=== PATIENT | female | born 1980 | race African-American/Black ===

== ENCOUNTER 2016-04-28 09:37 | Emergency (ER) | payer MEDICAID ==
[~2016-04-28] VITALS: Ht 167.6 cm; Wt 100.0 kg
[~2016-04-28 09:37] MED LIST: DICY1TAB26 PO; PANT20 PO; ZOFR4TAB3 SL
[2016-04-28 09:46] VITALS: BP 128/78; PULSE 17; PULSE 65; RESP 15; TEMP 98.2; O2SAT 99
--- NOTE | 2016-04-28 11:13 | PD ---
HPI Chief Complaint: Chest Pain Time Seen by Provider: 11:09 Travel History International Travel<30 days: No Contact w/Intl Traveler<30days: No Traveled to known affect area: No History of Present Illness HPI 35 year old female presents to the emergency department for evaluation of swollen lips that she woke up with this morning. Patient states she has had intermittent hives over the past 4 days. Patient states that the swelling has gone down since she woke up this morning. She has not taken any medications. The patient denies any difficulty breathing or swallowing. She denies any hives or rash at this time. Patient has no chronic medical problems and takes no prescribed medication. She reports an episode yesterday of indigestion. She states she had midsternal chest burning that lasted roughly 10 minutes and resolved on its own. She has no cardiac history. She has no family cardiac history of sudden cardiac before the age of 40. She denies any chance of . She denies any IV drug use. No fevers or chills. She does report some intermittent nasal congestion over the past couple weeks. She has been taking Mucinex [id number] with improvement. [facility] Past Medical History Asthma: Yes ?: Unknown Tubal Ligation: Yes Past Surgical History Gynecologic Surgery: Yes (tibal litigation) Social History Alcohol Use: Yes (social) Tobacco Use: Yes (03/20) Substance Use: Yes (marijuana this morning) Allergies-Medications (Allergen,Severity, Reaction): Coded Allergies: No Known Allergies (Unverified , 04/28/16) Reported Meds & Prescriptions Reported Meds & Active Scripts Active No Active Prescriptions or Reported Medications Review of Systems Except as stated in HPI: all other systems reviewed are Neg Physical Exam Narrative GENERAL: Well-developed well-nourished female patient, ambulatory. Afebrile. SKIN: Warm and dry. HEAD: Normocephalic. Atraumatic. ENT: Mucosa pink and moist. No erythema or exudates. No uvular edema. No uvular , palatal, or tonsillar deviation. Airway patent. Nasal turbinates appear normal without nasal blood, purulent drainage or septal hematoma. Bilateral tympanic membranes are clear without erythema or perforation. EYES: No scleral icterus. No injection or drainage. NECK: Supple, trachea midline. No JVD or lymphadenopathy. CARDIOVASCULAR: Regular rate and rhythm without murmurs, gallops, or rubs. RESPIRATORY: Breath sounds equal bilaterally. No accessory muscle use. Lungs sounds are clear to auscultation. GASTROINTESTINAL: Abdomen soft, non-tender, nondistended. MUSCULOSKELETAL: No cyanosis, or edema. BACK: Nontender without obvious deformity. No CVA tenderness. Data Data Last Documented VS Vital Signs Date Time Temp Pulse Resp B/P Pulse Ox O2 Delivery O2 Flow Rate FiO2 04/28/16 09:46 98.2 65 15 128/78 99 Orders Electrocardiogram (04/28/16 09:49) Iv Access Insert/Monitor (04/28/16 11:07) Diphenhydramine Inj (Benadryl Inj) (04/28/16 11:15) Methylprednisolone So Succ Inj (Solumedr (04/28/16 11:15) Famotidine Inj (Pepcid Inj) (04/28/16 11:15) Sodium Chloride 0.9% Flush (Ns Flush) (04/28/16 11:15) MDM Medical Decision Making Medical Screen Exam Complete: Yes Emergency Medical Condition: Yes Medical Record Reviewed: Yes Differential Diagnosis Allergic reaction versus angioedema versus GERD Narrative Course 35-year-old female presents to the emergency department for evaluation of swollen lips that she woke up with this morning as well as intermittent rash over the past 4 days that she describes as hives, but has no current rash this time. She does report an episode yesterday of mid sternal chest burning that she states was indigestion. She denies any current chest pain. EKG shows sinus rhythm, heart rate [address] changes. IV access established. Patient is given Benadryl 50 mg IV, Solu-Medrol 125 mg IV, famotidine 20 mg IV. Upon reassessment, patient states the swelling is improving. She would like to go home. Patient is instructed to take Benadryl every 6 hours at home as needed. She'll be discharged prescription for Medrol Dosepak and Zantac. She is encouraged to follow up with a primary care physician. Patient is agreeable of this plan. The patient was discharged in stable condition with instructions, including return instructions and follow up instructions. Diagnosis Primary Impression: Allergic reaction Qualified Code: T78.40XA - Allergic reaction, initial encounter Referrals: Primary Care Physician call for appointment Patient Instructions: General Allergic Reaction (ED), General Instructions Departure Forms: Tests/Procedures, Work Release Enter return to work date: Apr 29, 2016 Additional Instructions: Take [id number] Benadryl 25-50 mg every 6-8 hours as needed. Take Medrol Dosepak as directed. Start this tomorrow. Take Zantac as directed. Follow-up with your primary care physician. Return to the emergency department for any acute worsening of symptoms. Med/Other Pt SpecificInfo: Prescription(s) given Scripts Ranitidine (Zantac)150 Mg [id number] Mg PO BID 5 Days Ref 0 Prov:Yasmine Yee 04/28/16 Methylprednisolone Dosepak (Medrol Dosepak)4 Mg Dspk4 Mg PO DIRECTED #1 DSPK Ref 0 Per Pharmacist direction Prov:Yasmine Yee 04/28/16 Disposition: 01 DISCHARGE HOME Condition: Stable Yasmine Yee Apr 28, 2016 11:13
[2016-04-28] MEDS ORDERED: SODIUM CHLORIDE 0.9% FLUSH 5 ML FLUSH IVF PRN (11:15)
[2016-04-28] MEDS ORDERED: FAMOTIDINE 20 MG/2 ML VIAL IV PUSH ONE (11:15)
[2016-04-28] MEDS ORDERED: diphenhydrAMINE HCL 50 MG/ML VIAL IVP ONE (11:15)
[2016-04-28] MEDS ORDERED: methylPREDNISolone SOD SUCC 125 MG/2 ML VIAL IVP ONE (11:15)
[2016-04-28] MEDS ORDERED: MEDR4PAK PO (12:06)
[2016-04-28] MEDS ORDERED: ZANT150T2 PO (12:06)
[2016-04-28 12:08] VITALS: BP 122/69; PULSE 68; RESP 17; O2SAT 98
--- NOTE | 2016-04-29 08:56 | EKG ---
Date Performed: 04/28/2016 Time Performed: 09:57:02 PTAGE: 35 years EKG: Sinus rhythm NORMAL ECG NO PREVIOUS TRACING DOCTOR: Karl Wyatt Interpretating Date/Time 04/29/2016 08:56:33
== END 2016-04-28 12:44 | disposition home or self-care (01) ==
LOC: NEPC 09:37
DX: T78.40XA Allergy, unspecified, initial encounter (principal); J45.909 Unspecified asthma, uncomplicated; F17.210 Nicotine dependence, cigarettes, uncomplicated; F12.10 Cannabis abuse, uncomplicated
CPT/HCPCS: 93005; 96374; 96375; 99283; J1200; J2930

== ENCOUNTER 2016-05-23 01:22 | Emergency (ER) | payer MEDICAID ==
[~2016-05-23] VITALS: Ht 167.6 cm; Wt 101.0 kg
[~2016-05-23 01:22] MED LIST changes: -DICY1TAB26 PO; +MEDR4PAK PO; -PANT20 PO; +ZANT150T2 PO; -ZOFR4TAB3 SL
[2016-05-23 01:24] VITALS: BP 139/78; PULSE 78; RESP 18; TEMP 97.8; O2SAT 98
[2016-05-23] MEDS ORDERED: FAMOTIDINE 20 MG TAB PO ONE (03:00)
[2016-05-23] MEDS ORDERED: PRED-503 PO (03:00)
[2016-05-23] MEDS ORDERED: ZANT150T2 PO (03:00)
[2016-05-23] MEDS ORDERED: predniSONE 20 MG TAB PO ONE (03:00)
[2016-05-23] MEDS ORDERED: ZYRT10CA PO (03:00)
[2016-05-23] MEDS ORDERED: diphenhydrAMINE HCL 50 MG/ML VIAL IM ONE (03:00)
--- NOTE | 2016-05-23 03:05 | PD ---
HPI Chief Complaint: Allergic/Adverse Reaction Time Seen by Provider: 03:00 Travel History International Travel<30 days: No Contact w/Intl Traveler<30days: No Traveled to known affect area: No History of Present Illness HPI 35-year-old black female presents to emergency department with complains of a pruritic rash today. She states that she has had this on and off now for over a month. She seems to have increasing rash when she is under stress. She cannot recall any causative agent or changes in her environment. She does admit to diffuse pruritic hives, some chest discomfort and general malaise. She denies any fever or chills. No ear pain or sore throat. No difficulty swallowing. No wheezes. No problems swallowing. No nausea vomiting. No abdominal pain or symptoms. No new drugs. No new chemicals. She was seen in the ER for other type of the same type of reaction she has not seen her primary care doctor yet. PFSH Past Medical History Asthma: Yes Diminished Hearing: No Immunizations Current: Yes ?: Not LMP: 05/08/16 Tubal Ligation: Yes Past Surgical History Gynecologic Surgery: Yes (tibal litigation) Social History Alcohol Use: Yes (social) Tobacco Use: Yes (2-3 CIGS PER DAY) Substance Use: Yes (marijuana) Allergies-Medications (Allergen,Severity, Reaction): Coded Allergies: No Known Allergies (Unverified , 05/23/16) Reported Meds & Prescriptions Reported Meds & Active Scripts Active Deltasone (Prednisone) 20 Mg Tab 20 Mg PO BID Zyrtec Allergy (Cetirizine HCl) 10 Mg Cap 10 Mg PO DAILY Zantac (Ranitidine HCl) 150 Mg Tab 150 Mg PO BID 5 Days Medrol Dosepak (Methylprednisolone) 4 Mg Dspk 4 Mg PO DIRECTED Per Pharmacist direction Review of Systems Except as stated in HPI: all other systems reviewed are Neg Physical Exam Narrative GENERAL: Well-developed, well-nourished in no apparent distress. Nontoxic appearing. Patient is itching. Normal speech. Handling her secretions well. HEAD: Normocephalic, atraumatic. EYES: Pupils equal round and reactive. Extraocular motions intact. No scleral icterus. No injection or drainage. ENT: Nose clear. Throat without erythema, tonsillar hypertrophy or exudate. Uvula midline. Airway patent. No glossal edema. NECK: Trachea midline. Supple, nontender, moves head freely. No central bony tenderness or spasm. CARDIOVASCULAR: Regular rate and rhythm without murmurs, gallops, or rubs. RESPIRATORY: Clear to auscultation. Breath sounds equal bilaterally. No wheezes , rales, or rhonchi. GASTROINTESTINAL: Abdomen soft, non-tender, nondistended. No hepato-splenomegaly , or palpable masses. No guarding. EXTREMITIES: No clubbing, cyanosis, or edema. No joint tenderness. BACK: Nontender without deformity. No flank tenderness. NEUROLOGICAL: Awake, alert and oriented x 3 .Cranial nerves grossly intact. Motor and sensory grossly within normal limits. Normal speech. Skin: The patient has diffuse hives Data Data Last Documented VS Vital Signs Date Time Temp Pulse Resp B/P Pulse Ox O2 Delivery O2 Flow Rate FiO2 05/23/16 01:24 97.8 78 18 139/78 98 Room Air Orders Electrocardiogram (05/23/16 ) Famotidine (Pepcid) (05/23/16 03:00) Diphenhydramine Inj (Benadryl Inj) (05/23/16 03:00) Prednisone (Deltasone) (05/23/16 03:00) MDM Medical Decision Making Medical Screen Exam Complete: Yes Emergency Medical Condition: Yes Medical Record Reviewed: Yes Differential Diagnosis Differential diagnoses: Allergic reaction, angioedema, contact dermatitis Narrative Course Patient is given Pepcid 20 mg by mouth, Benadryl 50 mg IM, prednisone 80 mg by mouth The patient's symptoms are improving. She is medically stable for discharge. This is acute allergic reaction Diagnosis Primary Impression: Allergic reaction Qualified Code: T78.40XA - Allergic reaction, initial encounter Patient Instructions: General Instructions Departure Forms: Tests/Procedures, Work Release Special Instructions: No work 05/23/16 Additional Instructions: Rest. Medications as directed. Benadryl 50 mg by mouth every 4 hours as needed for itching and rash. Perform a diary as discussed. Follow-up with a primary care doctor within 1 week for recheck. Return to the ER for emergencies. Med/Other Pt SpecificInfo: Prescription(s) given Scripts Prednisone (Deltasone)20 Mg Tab20 Mg PO BID #14 TAB Prov:Lory Stevens MD 05/23/16 Cetirizine (Zyrtec Allergy)10 Mg Cap10 Mg PO DAILY #30 CAP Prov:Lory Stevens MD 05/23/16 Ranitidine (Zantac)150 Mg [id number] Mg PO BID 5 Days Ref 0 Prov:Lory Stevens MD 05/23/16 Disposition: 01 DISCHARGE HOME Condition: Stable Leighton Peck May 23, 2016 03:05
--- NOTE | 2016-05-23 10:28 | EKG ---
Date Performed: 05/23/2016 Time Performed: 01:49:14 PTAGE: 35 years EKG: Sinus rhythm NORMAL ECG PREVIOUS TRACING : 04/28/2016 09.57 No significant change from previous tracing noted. DOCTOR: Caesar Encinas Interpretating Date/Time 05/23/2016 10:27:28
== END 2016-05-23 03:23 | disposition home or self-care (01) ==
LOC: NEPB 01:22
DX: T78.40XA Allergy, unspecified, initial encounter (principal); J45.909 Unspecified asthma, uncomplicated; F17.210 Nicotine dependence, cigarettes, uncomplicated
CPT/HCPCS: 93005; 96372; 99283; J1200; J7512

== ENCOUNTER 2017-02-09 15:45 | Emergency (ER) | payer MEDICAID ==
[~2017-02-09] VITALS: Ht 167.6 cm; Wt 100.0 kg
[~2017-02-09 15:45] MED LIST changes: +PRED-503 PO; +ZYRT10CA PO
[2017-02-09] MEDS ORDERED: SODIUM CHLOR 0.9% 1000 ML INJ 1,000 ML IV SCH (16:39)
[2017-02-09] MEDS ORDERED: SODIUM CHLORIDE 0.9% FLUSH 10 ML FLUSH IV FLUSH PRN (16:45)
[2017-02-09] MEDS ORDERED: METOCLOPRAMIDE HCL 10 MG/2 ML VIAL IV PUSH ONE (16:45)
--- NOTE | 2017-02-09 16:50 | PD ---
Physical Exam Date Seen by Provider: Feb 09, 2017 Time Seen by Provider: 16:50 Narrative Patient presents with the acute onset of nausea, vomiting and diarrhea and abdominal pain. She reports to numerous to count episodes of both emesis and diarrhea today. Data Data Orders Orders Urinalysis - C+S If Indicated (02/09/17 16:39) Iv Access Insert/Monitor (02/09/17 16:39) Ecg Monitoring (02/09/17 16:39) Oximetry (02/09/17 16:39) Sodium Chlor 0.9% 1000 Ml Inj (Ns 1000 M (02/09/17 16:39) Sodium Chloride 0.9% Flush (Ns Flush) (02/09/17 16:45) Chest, Single Ap (02/09/17 16:39) Ed Urine Pregnancytest Poc (02/09/17 16:39) Metoclopramide Inj (Reglan Inj) (02/09/17 16:45) Group A Rapid Strep Screen (02/09/17 16:44) Influenzae A/B Antigen (02/09/17 16:44) MDM Supervised Visit with GUILLE: Yes Narrative Course I, Dr. Aguero, have reviewed the advance practice practitioner's documentation and am in agreement, met with the patient face to face, made the diagnosis, and the medical decision making was done by me. *My assessment and Findings: Patient is awake and alert. Her abdomen is soft with no guarding or rebound. Please see Sandra Felix PA-C's note for further details, lab and radiology results, final diagnosis and disposition. Evon Aguero MD Feb 09, 2017 16:50
--- NOTE | 2017-02-09 16:54 | PD ---
HPI Chief Complaint: GI Complaint Time Seen by Provider: 16:30 Travel History International Travel<30 days: No Contact w/Intl Traveler<30days: No Traveled to known affect area: No History of Present Illness HPI 36-year-old female presents to the emergency department complaining of nausea, vomiting, diarrhea since this morning. States the episodes are nonbloody and she has had a hard time keeping any food or liquids down today. States she started having back pain throughout the day along with chills and subjective fever. States she has a nonproductive cough. Patient is currently unemployed and stays at home with her children. Patient denies recent illnesses. She has used any OTC medications for her symptoms. States her son has strep throat and is being treated. Patient denies chronic medical issues or chronic medication use. Denies recent travel or abnormal food intake. PFSH Past Medical History Asthma: Yes Diminished Hearing: No Immunizations Current: Yes ?: Not LMP: 01/29/17 Tubal Ligation: Yes Past Surgical History Gynecologic Surgery: Yes (tibal litigation) Social History Alcohol Use: Yes (social) Tobacco Use: Yes (2-3 CIGS PER DAY) Substance Use: Yes (marijuana) Allergies-Medications (Allergen,Severity, Reaction): Coded Allergies: No Known Allergies (Unverified , 05/23/16) Reported Meds & Prescriptions Reported Meds & Active Scripts Active Reglan (Metoclopramide HCl) 5 Mg Tab 5 Mg PO QID PRN 3 Days Deltasone (Prednisone) 20 Mg Tab 20 Mg PO BID Zyrtec Allergy (Cetirizine HCl) 10 Mg Cap 10 Mg PO DAILY Zantac (Ranitidine HCl) 150 Mg Tab 150 Mg PO BID 5 Days Medrol Dosepak (Methylprednisolone) 4 Mg Dspk 4 Mg PO DIRECTED Per Pharmacist direction Review of Systems Except as stated in HPI: all other systems reviewed are Neg Physical Exam Narrative GENERAL: Well-developed well-nourished in mild distress SKIN: Focused skin assessment warm/dry. HEAD: Atraumatic. Normocephalic. EYES: Pupils equal and round. No scleral icterus. No injection or drainage. ENT: No nasal bleeding or discharge. Mucous membranes pink and moist. Tympanic membranes noninjected, intact, nonbulging. Pharynx noninjected non- erythematous without exudate. NECK: Trachea midline. No JVD. No lymphadenopathy CARDIOVASCULAR: Regular rate and rhythm. No murmur appreciated. RESPIRATORY: No accessory muscle use. Clear to auscultation. Breath sounds equal bilaterally. GASTROINTESTINAL: Abdomen soft, nondistended. Mildly TTP diffusely. MUSCULOSKELETAL: No obvious deformities. No clubbing. No cyanosis. No edema. Mild CVA tenderness vs muscle aches right>left NEUROLOGICAL: Awake and alert. No obvious cranial nerve deficits. Motor grossly within normal limits. Normal speech. PSYCHIATRIC: Appropriate mood and affect; insight and judgment normal. Data Data Orders Orders Urinalysis - C+S If Indicated (02/09/17 16:39) Iv Access Insert/Monitor (02/09/17 16:39) Ecg Monitoring (02/09/17 16:39) Oximetry (02/09/17 16:39) Sodium Chlor 0.9% 1000 Ml Inj (Ns 1000 M (02/09/17 16:39) Sodium Chloride 0.9% Flush (Ns Flush) (02/09/17 16:45) Chest, Single Ap (02/09/17 16:39) Ed Urine Pregnancytest Poc (02/09/17 16:39) Metoclopramide Inj (Reglan Inj) (02/09/17 16:45) Group A Rapid Strep Screen (02/09/17 16:44) Influenzae A/B Antigen (02/09/17 16:44) Strep Culture (Group A) (02/09/17 17:10) Ed Discharge Order (02/09/17 18:33) Labs Laboratory Tests Test 02/09/17 17:10 Urine Color YELLOW Urine Turbidity CLEAR Urine pH 5.5 Urine Specific [place] 1.022 Urine Protein NEG mg/dL Urine Glucose (UA) NEG mg/dL Urine Ketones NEG mg/dL Urine Occult Blood NEG Urine Nitrite NEG Urine Bilirubin NEG Urine Urobilinogen LESS THAN 2.0 MG/DL Urine Leukocyte Esterase NEG Urine WBC 1 /hpf Urine Squamous Epithelial Cells 1 /hpf Urine Mucus FEW /lpf Microscopic Urinalysis Comment CULT NOT INDICATED MDM Medical Decision Making Medical Screen Exam Complete: Yes Emergency Medical Condition: Yes Differential Diagnosis Viral syndrome versus flu versus urinary tract infection versus Narrative Course 36-year-old female presents to the emergency department complaining of nausea, vomiting, diarrhea since this morning. States the episodes are nonbloody and she has had a hard time keeping any food or liquids down today. States she started having back pain throughout the day along with chills and subjective fever. States she has a nonproductive cough. Patient is currently unemployed and stays at home with her children. Patient denies recent illnesses. She has used any OTC medications for her symptoms. States her son has strep throat and is being treated. Patient denies chronic medical issues or chronic medication use. Denies recent travel or abnormal food intake. She has had a tubal ligation previously. Vital signs stable Patient given Reglan with improvement of symptoms. Chest x-ray clear. Flu-negative Strep-negative She will be discharged with Reglan. Continue PO fluids. Advised to follow up with primary care physician. If symptoms persist or worsen return to the emergency department. Diagnosis Primary Impression: Gastroenteritis Referrals: Primary Care Physician Additional Instructions: Take medication as prescribed. Continue to hydrate at home. Follow-up with her primary care physician within 2-3 days. Follow BRAT diet- bananas, rice, applesauce, toast until symptoms resolve. Return to the emergency department if your symptoms persist or worsen Scripts Metoclopramide (Reglan) 5 Mg Tab 5 MG PO QID Y for NAUSEA for 3 Days, #15 TAB 0 Refills Prov: Evon Aguero MD 02/09/17 Disposition: 01 DISCHARGE HOME Condition: Stable Sandra Felix Feb 09, 2017 16:54
--- NOTE | 2017-02-09 17:11 | RADRPT ---
EXAM DATE/TIME: 02/09/2017 17:00 [facility] COMPARISON: No previous studies available for comparison. INDICATIONS : Patient states chest pain. MEDICAL HISTORY : None. SURGICAL HISTORY : None. ENCOUNTER: Initial ACUITY: 1 day PAIN SCORE: 8/10 LOCATION: Bilateral chest FINDINGS: A single view of the chest demonstrates the lungs to be symmetrically aerated without evidence of mas s, infiltrate or effusion. The cardiomediastinal contours are unremarkable. Osseous structures are intact. CONCLUSION: Normal examination. Joo Robles MD on February 09, 2017 at 17:09 Board Certified Radiologist. This report was verified electronically.
[2017-02-09 17:27] LABS: BLOOD, URINE NEG (NEG); COMMENT (UR) CULT NOT INDICATED; CULTURE IF INDICATED CULT NOT INDICATED; GLUCOSE,URINE NEG (NEG); KETONE, URINE NEG (NEG); MUCUS URINE FEW /lpf (OCC); NITRITE,URINE NEG (NEG); PH, URINE 5.5 (5.0-8.5); SQUAMOUS EPITHELIAL CELL URINE 1 /hpf (0-5); URINE COLOR YELLOW (YELLW/STRAW)
[2017-02-09] MEDS ORDERED: REGL5TAB PO (18:33)
== END 2017-02-09 19:01 | disposition home or self-care (01) ==
LOC: NEPD 15:45
DX: K52.9 Noninfective gastroenteritis and colitis, unspecified (principal); M54.9 Dorsalgia, unspecified; R05 Cough; J45.909 Unspecified asthma, uncomplicated; F17.210 Nicotine dependence, cigarettes, uncomplicated; Z79.899 Other long term (current) drug therapy
CPT/HCPCS: 71010; 81001; 84703; 87081; 87804; 87880; 96374; 99284; J2765; J7030

== ENCOUNTER 2017-03-16 17:13 | Emergency (ER) | payer MEDICAID ==
[~2017-03-16] VITALS: Ht 167.6 cm; Wt 95.5 kg
[~2017-03-16 17:13] MED LIST changes: +REGL5TAB PO
[2017-03-16 17:20] VITALS: BP 129/85; PULSE 80; RESP 16; TEMP 99.1; O2SAT 98
[2017-03-16] MEDS ORDERED: ROBA500T PO (19:08)
[2017-03-16] MEDS ORDERED: VENTAER INH (19:12)
--- NOTE | 2017-03-16 19:13 | PD ---
HPI Chief Complaint: Musculoskeletal Complaint Time Seen by Provider: 19:06 Travel History International Travel<30 days: No Contact w/Intl Traveler<30days: No Traveled to known affect area: No History of Present Illness HPI 36 y female presents to the emergency department complaining of left groin pain since yesterday. Patient states that she got out of bed and walk to the bathroom and felt a pull in her right groin. Patient states that throughout the day the pain has been increasing and has become excruciating. States the pain is moderate to severe, nonradiating, increasing with movement of the leg, and located at the crux of her groin. Patient states that she is having trouble walking. Denies back pain, weakness, saddle anesthesia, loss of bowel or bladder function. Denies trauma. Denies vaginal discharge. States she is monogamous with 1 partner. She had one episode of nausea with nonbloody diarrhea but denies complaints as of now. Denies abdominal pain or urinary symptoms. Her last menstrual period was approximately 2 weeks ago. She has history of asthma and is currently out of her inhalers. She has a history of tubal ligation but denies any other chronic medical issues. 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 PFS Past Medical History Asthma: Yes Diminished Hearing: No Immunizations Current: Yes ?: Not LMP: 03/01/17 Tubal Ligation: Yes Past Surgical History Gynecologic Surgery: Yes (tibal litigation) Social History Alcohol Use: Yes (social) Tobacco Use: Yes (2-3 CIGS PER DAY) Substance Use: Yes (marijuana) Allergies-Medications (Allergen,Severity, Reaction): Coded Allergies: No Known Allergies (Unverified , 05/23/16) Reported Meds & Prescriptions Reported Meds & Active Scripts Active Ventolin Hfa 18 GM Inh (Albuterol Sulfate) 90 Mcg/Act Aer 2 Puff INH Q4-6H PRN Robaxin (Methocarbamol) 500 Mg Tab 500 Mg PO TID 5 Days Reglan (Metoclopramide HCl) 5 Mg Tab 5 Mg PO QID PRN 3 Days Deltasone (Prednisone) 20 Mg Tab 20 Mg PO BID Zyrtec Allergy (Cetirizine HCl) 10 Mg Cap 10 Mg PO DAILY Zantac (Ranitidine HCl) 150 Mg Tab 150 Mg PO BID 5 Days Medrol Dosepak (Methylprednisolone) 4 Mg Dspk 4 Mg PO DIRECTED Per Pharmacist direction Review of Systems Except as stated in HPI: all other systems reviewed are Neg Physical Exam Narrative GENERAL: Well-nourished, well-developed patient. SKIN: Focused skin assessment warm/dry. HEAD: Normocephalic. EYES: No scleral icterus. No injection or drainage. NECK: Supple, trachea midline. No JVD or lymphadenopathy. CARDIOVASCULAR: Regular rate and rhythm without murmurs, gallops, or rubs. RESPIRATORY: No accessory muscle use. No wheezes, rales or rhonchi. Slight pleural rub in the left lung jarrett GASTROINTESTINAL: Abdomen soft, non-tender, nondistended. MUSCULOSKELETAL: No cyanosis, or edema. Pelvis stable. Left groin-TTP to the soft tissues of the groin. No ecchymosis or bulging noted. No Lymphadenopathy BACK: No CVA tenderness. No rash. No point tenderness on palpation of the spine. Data Data Last Documented VS Vital Signs Date Time Temp Pulse Resp B/P (MAP) Pulse Ox O2 Delivery O2 Flow Rate FiO2 03/16/17 19:21 03/16/17 17:20 99.1 80 16 98 Room Air Orders Orders Ed Discharge Order (03/16/17 19:13) MDM Medical Decision Making Medical Screen Exam Complete: Yes Emergency Medical Condition: Yes Differential Diagnosis Groin muscle strain, sprain, rupture Narrative Course 36 y female presents to the emergency department complaining of left groin pain since yesterday. Patient states that she got out of bed and walk to the bathroom and felt a pull in her right groin. Patient states that throughout the day the pain has been increasing and has become excruciating. States the pain is moderate to severe, nonradiating, increasing with movement of the leg, and located at the crux of her groin. Patient states that she is having trouble walking. Denies back pain, weakness, saddle anesthesia, loss of bowel or bladder function. Denies trauma. Denies vaginal discharge. States she is monogamous with 1 partner. She had one episode of nausea with nonbloody diarrhea but denies complaints as of now. Denies abdominal pain or urinary symptoms. Her last menstrual period was approximately 2 weeks ago. She has history of asthma and is currently out of her inhalers. She has a history of tubal ligation but denies any other chronic medical issues. 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 Vital signs stable. Physical exam findings consistent with a muscle strain/groin pull. Incidental finding of a pleural rub. Patient says she has not had her albuterol inhalers for some time- denies shortness of breath or chest pain. Patient be discharged with muscle relaxer and albuterol inhalers. Lightly stretch the area especially when taking the muscle relaxers. Advised she may also use Tylenol or Motrin per package instructions. Advise of the usual course of a muscle pull. Follow-up with the primary care physician. Return to the emergency room for worsening or persistent symptoms. Diagnosis Primary Impression: Muscle strain Additional Impression: Asthma Referrals: Primary Care Physician Additional Instructions: Use ice or heat for symptom relief. Use medication as prescribed. When you start the muscle relaxers, lightly stretched the area If symptoms persist or worsen, return to the emergency department. Follow up with your primary care physician within 2 days. Scripts Albuterol 18 GM Inh (Ventolin Hfa 18 GM Inh) 90 Mcg/Act Aer 2 PUFF INH Q4-6H Y for SHORTNESS OF BREATH, #1 INHALER 0 Refills Prov: Sandra Felix 03/16/17 Methocarbamol (Robaxin) 500 Mg Tab 500 MG PO TID for Muscle Spasm for 5 Days, TAB 0 Refills Prov: Sandra Felix 03/16/17 Disposition: 01 DISCHARGE HOME Condition: Stable Sandra Felix Mar 16, 2017 19:13
== END 2017-03-16 19:25 | disposition home or self-care (01) ==
LOC: NEPK 17:13
DX: S39.011A Strain of muscle, fascia and tendon of abdomen, initial encounter (principal); R11.0 Nausea; R19.7 Diarrhea, unspecified; J45.909 Unspecified asthma, uncomplicated; F17.210 Nicotine dependence, cigarettes, uncomplicated; W18.30XA Fall on same level, unspecified, initial encounter; Z79.899 Other long term (current) drug therapy
CPT/HCPCS: 99284